=== PATIENT | female | born 1985 | race African-American/Black ===

== ENCOUNTER 2018-08-05 17:59 | Inpatient (IN) ==
[2018-08-05] MEDS ORDERED: SODIUM CHLORIDE 0.9% 1,000 ML IV STA (18:31)
[2018-08-05 18:52] LABS: Basophils % 0.1 % (0.0-0.8); Eosinophils % 0.1 % (0.00-10.9); Hematocrit 21.3 VOL% (35.7-47.0); Immature Granulocytes % 0.4 %; Immature Granulocytes Absolute 0.06 #; Lymphocytes # 1.1 10*3/uL (1.4-4.0); Lymphocytes % 7.8 % (21.3-54.2); Mean Corpuscular HGB Conc 32.9 GM/DL (32-36); Mean Corpuscular Hemoglobin 34 PG (27-34); Mean Corpuscular Volume 102.9 FL (87-102); Monocytes # 1.3 10*3/uL (0.11-0.8); Monocytes % 9.3 % (1.7-12.7); Neutrophils # 11.5 10*3/uL (1.4-7.4); Neutrophils % 82.3 % (38.7-73.9); Platelet Count 156 T/CUMM (130-400); Red Blood Count 2.07 MC/CUMM (3.8-5.5); Red Cell Distribution Width 12.8 % (9.3-17.3); White Blood Count 13.9 T/CUMM (4-12)
[2018-08-05 19:20] LABS: Albumin 3.3 G/DL (3.4-5.0); Bilirubin,Total 0.5 MG/DL (0.2-1.0); Calcium 8.3 MG/DL (8.5-10.1); Osmolality,Calculated 276.5 MOS/KG (273-304); Potassium 3.5 MMOL/L (3.5-5.1); Total Protein 6.9 G/DL (6.4-8.3)
[2018-08-05] MEDS ORDERED: IBUPROFEN 800 MG TABLET PO PRN (19:53)
[2018-08-05] MEDS ORDERED: ACETAMINOPHEN 325 MG TABLET PO PRN (19:53)
[2018-08-05] MEDS ORDERED: ONDANSETRON 4 MG/2 ML VIAL IV PRN (19:53)
[2018-08-05] MEDS ORDERED: cefTRIAXone 250 MG VIAL IV STA (19:57)
[2018-08-05] MEDS ORDERED: cefTRIAXone 250 MG VIAL IV SCH (20:00)
[2018-08-05 20:17] LABS: Apearance,Urine CLEAR (Clear); Bilirubin,Urine Negative (Negative); Blood, Urine Large mg/dL (Negative); Glucose,Urine (UA) Negative (Negative); Ketones,Urine Negative (Negative); Mucus,Urine Occasional /LPF (Occasional); Nitrite,Urine Negative (Negative); Protein,Urine Negative; RBC,Urine 1 /HPF (0-4); Squamous Epithelial Cell,Urine Occasional /HPF (0-10); Urine Color Straw (Yellow); Urine Specific Gravity 1.047 (1.001-1.035); Urine Urobilinogen < 2.0 EU/DL (0.2-1.0); WBC,Urine 1 /HPF (0-6)
[2018-08-05] MEDS: LACTATED RINGERS 1,000 ML IV SCH (22:16)
[2018-08-05] MEDS: cefTRIAXone 1,000 MG in SYRINGE 1 EACH IV SCH (22:19)
[2018-08-06] MEDS: SIMETHICONE CHEW 80 MG TABLET PO PRN ×4 (00:23→17:58)
[2018-08-06 04:10] LABS: Basophils % 0.1 % (0.0-0.8); Immature Granulocytes % 0.6 %; Immature Granulocytes Absolute 0.05 #; Lymphocytes # 1.4 10*3/uL (1.4-4.0); Lymphocytes % 16.2 % (21.3-54.2); Mean Corpuscular HGB Conc 31.4 GM/DL (32-36); Mean Corpuscular Hemoglobin 32 PG (27-34); Mean Corpuscular Volume 103.3 FL (87-102); Mean Platelet Volume 11.8 FL (9.6-12.0); Monocytes % 11.2 % (1.7-12.7); Neutrophils # 6.1 10*3/uL (1.4-7.4); Neutrophils % 71.9 % (38.7-73.9); Platelet Count 135 T/CUMM (130-400); White Blood Count 8.5 T/CUMM (4-12)
[2018-08-06] MEDS: LACTATED RINGERS 1,000 ML IV SCH (04:15)
[2018-08-06 04:39] LABS: Albumin 2.7 G/DL (3.4-5.0); Bilirubin,Total 0.6 MG/DL (0.2-1.0); Calcium 7.8 MG/DL (8.5-10.1); Osmolality,Calculated 277.4 MOS/KG (273-304); Potassium 3.9 MMOL/L (3.5-5.1); Total Protein 5.8 G/DL (6.4-8.3)
[2018-08-06 05:06] LABS: Red Blood Count 1.82 MC/CUMM (3.8-5.5)
[2018-08-06 05:07] LABS: Hematocrit 18.8 VOL% (35.7-47.0); Hemoglobin 5.9 GM/DL (12.0-16.0)
[2018-08-06] MEDS ORDERED: SODIUM CHLORIDE 0.9% 1,000 ML IV PRN ×3 (05:40→14:14)
[2018-08-06] MEDS: cefTRIAXone 1,000 MG in SYRINGE 1 EACH IV SCH (08:50)
[2018-08-06] MEDS: NICOTINE 14 MG/24 HR PATCH TRANSDERM SCH (15:52)
[2018-08-06] MEDS: POLYETHYLENE GLYCOL POWDER 17 GM PACK PO SCH (15:52)
[2018-08-06] MEDS: AZITHROMYCIN INJ 500 MG in SODIUM CHLORIDE 0.9% 250 ML IV SCH (15:53)
[2018-08-06] MEDS: ALBUTEROL/IPRATROPIUM 3 ML NEB RESP TX SCH (19:08)
[2018-08-06] MEDS ORDERED: cefTRIAXone 2,000 MG in SYRINGE 1 EACH IV SCH (21:00)
[2018-08-06] MEDS: guaiFENesin/DM ER 600-30 MG TABLET PO SCH (22:14)
[2018-08-07 00:54] LABS: Basophils % 0.3 % (0.0-0.8); Eosinophils % 0.3 % (0.00-10.9); Hematocrit 27.2 VOL% (35.7-47.0); Immature Granulocytes % 0.4 %; Immature Granulocytes Absolute 0.03 #; Lymphocytes # 1.9 10*3/uL (1.4-4.0); Lymphocytes % 24.7 % (21.3-54.2); Mean Corpuscular HGB Conc 34.2 GM/DL (32-36); Mean Corpuscular Hemoglobin 33 PG (27-34); Mean Corpuscular Volume 96.1 FL (87-102); Mean Platelet Volume 10.8 FL (9.6-12.0); Monocytes # 0.6 10*3/uL (0.11-0.8); Monocytes % 8.5 % (1.7-12.7); Neutrophils % 65.8 % (38.7-73.9); Platelet Count 127 T/CUMM (130-400); Red Blood Count 2.83 MC/CUMM (3.8-5.5); Red Cell Distribution Width 15.8 % (9.3-17.3); White Blood Count 7.5 T/CUMM (4-12)
[2018-08-07 00:57] LABS: Hemoglobin 9.3 GM/DL (12.0-16.0)
[2018-08-07] MEDS: ALBUTEROL/IPRATROPIUM 3 ML NEB RESP TX SCH ×4 (01:05→19:06)
[2018-08-07 01:10] LABS: Calcium 8.2 MG/DL (8.5-10.1); Osmolality,Calculated 275.4 MOS/KG (273-304); Potassium 3.8 MMOL/L (3.5-5.1)
[2018-08-07 01:14] LABS: % Iron Saturation 48.2 % (18-50); Ferritin 133.9 ng/ml (8-252)
[2018-08-07 01:56] LABS: Sedimentation Rate-Westergren 85 MM/HR (0-20)
[2018-08-07 02:32] LABS: Folate 5.5 NG/ML (5.4-24.0); Vitamin B12 257 PG/ML (211-911)
[2018-08-07] MEDS: SIMETHICONE CHEW 80 MG TABLET PO PRN ×2 (05:51→18:07)
[2018-08-07] MEDS: LACTOBACILLUS ACIDOPHILUS/BULGARICUS CAPLET PO SCH (09:30)
[2018-08-07] MEDS: NICOTINE 14 MG/24 HR PATCH TRANSDERM SCH (09:31)
[2018-08-07] MEDS: guaiFENesin/DM ER 600-30 MG TABLET PO SCH (09:31)
[2018-08-07] MEDS: AZITHROMYCIN INJ 500 MG in SODIUM CHLORIDE 0.9% 250 ML IV SCH (09:31)
[2018-08-07] MEDS: MULTIVITAMIN (BEROCCA) TABLET PO SCH (09:31)
[2018-08-07] MEDS: POLYETHYLENE GLYCOL POWDER 17 GM PACK PO SCH (09:32)
[2018-08-07] MEDS: cefTRIAXone 1,000 MG in SYRINGE 1 EACH IV SCH (12:08)
[2018-08-07] MEDS: LACTATED RINGERS 1,000 ML IV SCH ×4 (13:44→19:07)
[2018-08-08] MEDS: ALBUTEROL/IPRATROPIUM 3 ML NEB RESP TX SCH ×3 (00:01→13:30)
[2018-08-08] MEDS: LACTATED RINGERS 1,000 ML IV SCH (03:00)
[2018-08-08] MEDS: SIMETHICONE CHEW 80 MG TABLET PO PRN ×2 (03:42→14:11)
[2018-08-08] MEDS ORDERED: AZITHROMYCIN 250 MG TABLET PO SCH ×2 (09:00)
[2018-08-08] MEDS ORDERED: CHOLECALCIFEROL 1,000 UNIT TABLET PO SCH (09:00)
[2018-08-08] MEDS: NICOTINE 14 MG/24 HR PATCH TRANSDERM SCH (09:04)
[2018-08-08] MEDS: LACTOBACILLUS ACIDOPHILUS/BULGARICUS CAPLET PO SCH (09:06)
[2018-08-08] MEDS: MULTIVITAMIN (BEROCCA) TABLET PO SCH (09:06)
[2018-08-08] MEDS: cefTRIAXone 1,000 MG in SYRINGE 1 EACH IV SCH (09:06)
[2018-08-08] MEDS: POLYETHYLENE GLYCOL POWDER 17 GM PACK PO SCH (09:06)
[2018-08-08 16:15] VITALS: BP 142/92
== END 2018-08-08 17:30 | disposition home or self-care (01) | DRG 813 ==
LOC: N.ED 17:59 → N.EDINP 17:59 → N.2E 20:38
PROVIDERS: ADMIT Specialist; ATTEND Specialist